=== PATIENT | female | born 1995 | race Caucasian/White ===

== ENCOUNTER → 2016-08-07 | Outpatient (REF) | payer OTHER ==
[2016-08-07 18:25] LABS: MEAN CORPUSCULAR HEMOGLOBIN 32.5 pg (27.0-33.0); MEAN CORPUSCULAR HGB CONC 35.1 g/dl (32.0-36.5); MEAN CORPUSCULAR VOLUME 92.5 fl (80.0-96.0); RED CELL DISTRIBUTION WIDTH 12.8 % (11.5-14.5); WHITE BLOOD COUNT 7.4 K/mm3 (4.0-10.0)
[2016-08-07 18:27] LABS: HCG, SERUM QUANTITATIVE 135050 MIU/ML
[2016-08-08 12:11] LABS: HIV SCRN NEGATIVE (NEGATIVE)
[2016-08-08 12:12] LABS: CONTROL LINE INT CTR LINE PRESENT; HIV SCRN1 NEGATIVE (NEGATIVE)
[2016-08-09 12:36] LABS: HBsAg Prenatal NEGATIVE (NEGATIVE)
== END ==
LOC: M LAB REF 16:50
PROVIDERS: ATTEND Obstetrics & Gynecology
DX: O36.80X0 Pregnancy with inconclusive fetal viability, not applicable or unspecified (principal); Z3A.00 Weeks of gestation of pregnancy not specified

== ENCOUNTER → 2016-09-02 | Outpatient (REF) | payer OTHER | LOC: M LAB REF 10:02 | PROVIDERS: ATTEND Physician Assistant | DX: R30.0 Dysuria (principal) ==

== ENCOUNTER → 2016-12-06 | Outpatient (CLI) | payer OTHER ==
[~2016-12-06] MED LIST: ACET50TA PO; IBUP-1114 PO; PRENTAB9 PO
[2016-12-06 10:21] LABS: MEAN CORPUSCULAR HEMOGLOBIN 33.3 pg (27.0-33.0); MEAN CORPUSCULAR HGB CONC 34.5 g/dl (32.0-36.5); MEAN CORPUSCULAR VOLUME 96.5 fl (80.0-96.0); RED CELL DISTRIBUTION WIDTH 13.1 % (11.5-14.5); WHITE BLOOD COUNT 6.2 K/mm3 (4.0-10.0)
== END ==
LOC: M LAB 08:37
PROVIDERS: ATTEND Obstetrics & Gynecology
DX: Z34.82 Encounter for supervision of other normal pregnancy, second trimester (principal)

== ENCOUNTER → 2017-02-07 | Outpatient (REF) | payer MEDICAID | LOC: M LAB REF 14:36 | PROVIDERS: ATTEND Obstetrics & Gynecology | DX: Z34.03 Encounter for supervision of normal first pregnancy, third trimester (principal); Z3A.36 36 weeks gestation of pregnancy ==

== ENCOUNTER 2017-03-01 15:19 | Inpatient (IN) | payer MEDICAID ==
[2017-03-01] VITALS (13 sets, daily range): BP systolic 94–129; BP diastolic 55–84
[~2017-03-01] VITALS: Ht 154.9 cm; Wt 80.8 kg
[2017-03-01] MEDS ORDERED: PRENTAB9 PO (15:42)
[2017-03-01 16:15] LABS: MEAN CORPUSCULAR HEMOGLOBIN 29.7 pg (27.0-33.0); MEAN CORPUSCULAR HGB CONC 32.4 g/dl (32.0-36.5); MEAN CORPUSCULAR VOLUME 91.5 fl (80.0-96.0); RED CELL DISTRIBUTION WIDTH 13.1 % (11.5-14.5); WHITE BLOOD COUNT 6.9 10^3/uL (4.0-10.0)
[2017-03-01] MEDS ORDERED: LR 1,000 ML IV SCH (16:15)
[2017-03-01] MEDS ORDERED: PENICILLIN G POTASSIUM IV 5 MU in D5W MINI-BAG PLUS 100 ML IV ONE (17:00)
--- NOTE | 2017-03-01 18:05 | HPEPDOC ---
Obstetrical History & Physical General Date of Admission Mar 01, 2017 at 15:19 Primary Care Physician: RYAN ROSAS CNM History of Present Illness Patient is a 22 year-old female who is a at 39.6 weeks gestation with an ANITA of 03/02/17 based off of her 1st trimester ultrasound and consistent with her LMP. She initiated care in her 2nd trimester at [facility] at 14 weeks gestation. Her has been uncomplicated. She presents to L&D in active labor after being sent over from the office. She reports contractions and active movement. Denies leaking of fluid or vaginal bleeding. Chief Complaint: Contractions, term Information Provided By: Patient Age: 22 : 1 Term: 0 Pre-term: 0 Abortions: 0 Livin Care Care: Other (LATE TO CARE) Dating Final EDC: Mar 02, 2017 Final EDC by: 1st trimester (US) LMP: Jun 06, 2016 EGA at Admission: 39.6 Antepartum Course Height (inches): 61 Pre- weight (lbs.): 162 Admission Weight (lbs.): 177 Change in Weight (lbs.): 15 Past Medical History Past Obstetrical History : Past Obstetrical History: Primgravida [employer] History: No pertinent history Past Medical History Medical History LYME DISEASE 2006 Surgical History: Denies/None Family History Significant Family History: No pertinent family hx Social History Marital Status: Single Family situation: Spouse/partner home Psychosocial History: No pertinent psych hx * Smoker: former Smoker Alcohol: Denies Drugs: denies Abuse Violence Screening Have you been hit/kicked/slapp: No Have you been sexually assault: No Imunizations Tdap status: declined Allergies Coded Allergies: No Known Allergies (Unverified , 03/01/17) Medications Scheduled Multivitamins/ ( 27-0.8 mg) 1 Tab Tab, 1 TAB PO DAILY Physical Examination Physical Examination GENERAL: Alert and oriented times three. BREAST: . ABDOMEN: Gravid and non-tender to touch. FETUS: Is vertex (VTX) by sterile vaginal examination (SVE), fetus is vertex ( VTX) by Jonathan. HEART RATE: Regular rate and rhythm. LUNGS: Clear to auscultation (CTA). EXTREMITIES: No edema. No clonus. Vital Signs/I&O Vital Signs Date Time Temp Pulse Resp B/P (MAP) Pulse Ox O2 Delivery O2 Flow Rate FiO2 03/01/17 17:03 79 18 99/66 (77) 03/01/17 16:10 98.9 Laboratory Data 24H LABS Laboratory Tests 2 03/01/17 15:35: Serology Scanned Report Hepatitis B Testing 03/01/17 15:40: Nucleated Red Blood Cells % (auto) 0.0 CBC/BMP Laboratory Tests 03/01/17 15:40 Red Blood Count 3.54 L, Mean Corpuscular Volume 91.5, Mean Corpuscular Hemoglobin 29.7, Mean Corpuscular Hemoglobin Concent 32.4, Red Cell Distribution Width 13.1 Urine Culture: No Growth Pertinent Laboratoy Data Blood Type: A+ RBC Antibody Screen: Negative HIV: Negative Hepatitis B: Negative Hepatitis C: Negative Rapid Plasma Reagin: Nonreactive Rubella: Immune Chlamydia/Gonorrhea: Negative Group B Streptococcus: Positive Quad Screen Test: Declined Glucose Tolerance Test: 102 Vaginal Examination Dilation: 4 cm Effacement: 80+% Station: -3 Presentation: Cephalic presentation Position: Four quadrants Assessment Heart Rate (FHR): 130 Variability: Moderate Accelerations: Positive Decelerations: None Tocometer Contractions: Yes Frequency: irregular, every 3-7 min. Multi-drug resistant Organism: No history of MDRO Assessment/Plan Assessment IUP at 39.6 weeks gestation active labor at term GBS positive Category I FHR tracing Plan Admit to L&D Saline lock and labs per protocol. Regular diet OOB ad jen. GBS prophylaxis to be started per order. Anesthesia consult as needed. Anticipate cervical change. Consider Pitocin augmentation for irregular contractions. RYAN ROSAS CNM Mar 01, 2017 18:05
[2017-03-01] MEDS ORDERED: OXYTOCIN 30 UNITS IN 0.9% NaCl 500ML IV BAG (J2590) As Ordered ONE (20:00)
[2017-03-01] MEDS ORDERED: OXYTOCIN DRIP 30 UNITS in APPROPRIATE DILUENT 1 EA IV SCH (20:00)
[2017-03-01] MEDS: LR 1,000 ML IV SCH (20:16)
[2017-03-01] MEDS: PENICILLIN G POTASSIUM IV 2.5 MU in D5W 100 ML IV SCH (21:34)
[2017-03-02] VITALS (62 sets, daily range): BP systolic 84–162; BP diastolic 42–83
[2017-03-02] MEDS: PENICILLIN G POTASSIUM IV 2.5 MU in D5W 100 ML IV SCH ×2 (01:37→08:09)
[2017-03-02] MEDS ORDERED: PROMETHAZINE INJ 25 MG/ML VIAL (J2550) IV ONE (03:30)
[2017-03-02] MEDS ORDERED: BUTORPHANOL 2 MG/ML INJ (J0595) IV ONE (03:30)
[2017-03-02] MEDS: LR 1,000 ML IV SCH (03:53)
[2017-03-02] MEDS ORDERED: FENTANYL 2MCG/ML ROPIVACAINE 0.2% IN 0.9% NACL 200ML IVBAG As Ordered ONE (05:37)
[2017-03-02] MEDS ORDERED: LR 800 ML IV SCH (06:47)
[2017-03-02] MEDS ORDERED: FENTANYL/ROPIVACAINE/NACL BAG 200 ML EPIDURAL SCH (07:00)
[2017-03-02] MEDS ORDERED: ONDANSETRON 4MG/2ML VIAL (J2405) IV PRN (07:00)
[2017-03-02] MEDS ORDERED: REFRIGERATOR IV KEYS XX PRN (07:00)
[2017-03-02] MEDS ORDERED: diphenhydrAMINE INJ 50MG/ML VIAL (J1200) IV PRN (07:00)
[2017-03-02] MEDS ORDERED: LACTATED RINGER'S 1000 ML IV PRN (07:00)
[2017-03-02] MEDS ORDERED: EPIDURAL/PCA KEYS XX PRN (07:00)
[2017-03-02] MEDS ORDERED: ePHEDrine SULFATE 25 MG/5 ML(5MG/ML) SYRINGE IV PRN (07:00)
[2017-03-02] MEDS ORDERED: NALOXONE INJ 0.4 MG/1 ML VIAL (J2310) IV PRN (07:00)
[2017-03-02] MEDS ORDERED: EPIDURAL COMMENT XX SCH (07:00)
[2017-03-02] MEDS ORDERED: OXYTOCIN DRIP 30 UNITS in APPROPRIATE DILUENT 1 EA IV SCH (12:53)
[2017-03-02] MEDS ORDERED: ACETAMINOPHEN 500 MG TAB PO PRN (13:00)
[2017-03-02] MEDS ORDERED: ANUSOL HC CREAM 30GM TOP PRN (13:00)
[2017-03-02] MEDS ORDERED: MEASLES,MUMPS,RUBELLA VACCINE INJ (MMR-II) (90707) SC SCH (13:00)
[2017-03-02] MEDS ORDERED: METHYLERGONOVINE MALEATE 0.2 MG TAB PO PRN (13:00)
[2017-03-02] MEDS ORDERED: DOCUSATE SODIUM 100 MG CAP PO PRN (13:00)
[2017-03-02] MEDS ORDERED: DIBUCAINE 1% OINTMENT 30GM TOP PRN (13:00)
[2017-03-02] MEDS ORDERED: RHOGAM 300 MCG (1500 IU) INJ (J2790) IM SCH (13:00)
--- NOTE | 2017-03-02 13:05 | DNPDOC ---
[facility] Delivery Note Delivery Note DATE OF DELIVERY: 03/02/17 at 1212. PROCEDURE: Spontaneous vaginal delivery. RPG PROGRAMMER: Ryan Betts CNM, RICCARDO ANESTHESIA: epidural. ESTIMATED BLOOD LOSS: 200 mL. FINDINGS: 7 pounds 3 ounces, 3260 grams, female , Score 8/9, nuchal cord times x1 tight. DELIVERY SUMMARY: Patient is a 22 year-old female who is now a at 40 weeks gestation who presented to L&D in active labor. Her labor was augmented with Pitocin and AROM. She obtained an epidural for pain management. She progressed to fully dilated at 11:19 and pushed to live female in the OA position with restitution to LOT at 12:12. There was a tight nuchal cord times 1 that was not reduced until after delivery. The anterior shoulder delivered with ease and the corpus immediately followed. The baby was placed on the maternal abdomen skin to skin active and crying. The cord was clamped times 2 and cut after pulsation ceased. Cord cut by patient. A 3 vessel cord was noted. The placenta delivered intact and spontaneously via Luis mechanism at 12:33. Uterine hemostasis was achieved by rapid infusion of IV Pitocin and uterine fundal massage. Perineum and vagina were inspected and found to have a second degree perineal laceration that was repaired with a 3.[address]-1 and a left labial tear that was repaired with a 4.0 vicryl rapid. Mom will be . They are naming their daughter "Matty." Both mom and baby are in stable condition. RYAN BETTS CNM Mar 02, 2017 13:05
[2017-03-02] MEDS: PRENATAL VITAMINS CHEWABLE TABLET PO SCH (16:16)
[2017-03-02] MEDS: IBUPROFEN 800 MG TAB PO PRN (19:27)
[2017-03-03 06:25] VITALS: BP 109/55
[2017-03-03] MEDS: PRENATAL VITAMINS CHEWABLE TABLET PO SCH (08:02)
[2017-03-03] MEDS: IBUPROFEN 800 MG TAB PO PRN (08:03)
[2017-03-03 18:00] VITALS: BP 112/58
[2017-03-04 06:15] VITALS: BP 126/76
[2017-03-04] MEDS: PRENATAL VITAMINS CHEWABLE TABLET PO SCH (07:49)
[2017-03-04] MEDS ORDERED: IBUP-1114 PO (08:51)
[2017-03-04] MEDS ORDERED: ACET50TA PO (08:51)
== END 2017-03-04 12:00 | disposition home or self-care (01) | DRG 560 ==
LOC: M LDI 15:19 → M OBS 03-02 14:20
PROVIDERS: ADMIT Obstetrics & Gynecology; ATTEND Advanced Practice Midwife
PROC: 10E0XZZ Delivery of Products of Conception, External Approach (ICD-10-PCS; principal; 2017-03-02)
PROC: 0KQM0ZZ Repair Perineum Muscle, Open Approach (ICD-10-PCS; 2017-03-02)
PROC: 10907ZC Drainage of Amniotic Fluid, Therapeutic from Products of Conception, Via Natural or Artificial Opening (ICD-10-PCS; 2017-03-02)
DX: O99.824 Streptococcus B carrier state complicating childbirth (principal); O69.1XX0 Labor and delivery complicated by cord around neck, with compression, not applicable or unspecified; Z3A.39 39 weeks gestation of pregnancy; Z37.0 Single live birth; O70.1 Second degree perineal laceration during delivery

== ENCOUNTER → 2019-05-01 | Outpatient (REF) | payer MEDICAID, OTHER ==
[~2019-05-01] MED LIST changes: -ACET50TA PO; +MAPA500T2 PO
== END ==
LOC: M LAB REF 18:54
PROVIDERS: ATTEND Dermatology
DX: D49.2 Neoplasm of unspecified behavior of bone, soft tissue, and skin (principal)

== ENCOUNTER → 2020-09-10 | Outpatient (REF) | payer OTHER ==
[2020-09-10 12:09] LABS: BASO # 0.1 10^3/uL (0.0-0.2); BASO % 0.7 % (0.0-1.0); EOS # 0.2 10^3/uL (0.0-0.5); EOS % 1.8 % (0.0-3.0); HEMATOCRIT 41.8 % (36.0-47.0); HEMOGLOBIN 14.4 g/dl (12.0-15.5); LYMPH # 2.2 10^3/uL (1.5-5.0); LYMPH % 24.3 % (24.0-44.0); MEAN CORPUSCULAR HGB CONC 34.4 g/dl (32.0-36.5); MEAN CORPUSCULAR VOLUME 98.8 fl (80.0-96.0); MONO # 0.6 10^3/uL (0.0-0.8); MONO % 6.2 % (2.0-8.0); NEUTROPHILS % 66.6 % (36.0-66.0); PLATELET COUNT, AUTOMATED 333 10^3/uL (150-450); RED BLOOD COUNT 4.23 10^6/uL (4.00-5.40)
[2020-09-10 12:42] LABS: PERCENT SATURATION 23.5 % (13.2-45.0); THYROID STIMULATING HORMONE 7.37 uIU/ML (0.358-3.740)
[2020-09-10 12:43] LABS: TOTAL 25(OH) VITAMIN D 17.1 NG/ML (30.0-100.0)
== END ==
LOC: M LAB REF 11:21
PROVIDERS: ATTEND Pediatrics
DX: R41.3 Other amnesia (principal)

== ENCOUNTER → 2020-12-22 | Outpatient (CLI) | payer OTHER, MEDICAID ==
--- NOTE | 2020-12-22 16:03 | REP ---
INDICATION: HYPOTHYROIDISM. COMPARISON: None. TECHNIQUE: Bilateral thyroid ultrasound FINDINGS: The right lobe measures 4.5 x 1.6 x 1.6 cm and the left lobe measures 4.5 x 1.3 x 1.4 cm. The isthmus measures 2.4 mm. The thyroid parenchymal echo pattern is heterogenous throughout. In the upper pole right lobe there are 2 nodules 1 measures 5 mm in the other measures 3 mm. In the lower pole the right lobe there is a single 6 mm sized solid nodule. In the upper pole of the left lobe there is a 3 mm sized solid nodule IMPRESSION: Multiple tiny nodules as described above. Consider follow-up. <Electronically signed by Baudilio Mckeon > 12/22/20 0814
== END ==
LOC: M RAD 14:02
PROVIDERS: ATTEND Pediatrics
DX: E03.9 Hypothyroidism, unspecified (principal)

== ENCOUNTER → 2022-02-20 | Outpatient (REF) | payer MEDICAID ==
[2022-02-20 18:09] LABS: APPEARANCE, URINE MANUAL CLEAR (CLEAR); BILIRUBIN, URINE MANUAL NEGATIVE (NEGATIVE); COLOR, URINE MANUAL YELLOW (YELLOW); GLUCOSE, URINE (UA) MANUAL NEGATIVE (NEGATIVE); KETONE, URINE MANUAL NEGATIVE (NEGATIVE); PROTEIN, URINE MANUAL NEGATIVE (NEGATIVE); UROBILINOGEN, URINE MANUAL NORMAL (NORMAL)
[2022-02-20 18:10] LABS: BLOOD URINE MANUAL POSITIVE (NEGATIVE); LEUKOCYTE ESTERASE, URINE MAN POSITIVE (NEGATIVE); NITRITE, URINE MANUAL NEGATIVE (NEGATIVE)
[2022-02-20 18:15] LABS: BASO # 0.1 10^3/uL (0.0-0.2); BASO % 0.7 % (0.0-1.0); EOS # 0.2 10^3/uL (0.0-0.5); EOS % 1.8 % (0.0-3.0); HEMATOCRIT 39.3 % (36.0-47.0); HEMOGLOBIN 13.1 g/dl (12.0-15.5); LYMPH # 2.7 10^3/uL (1.5-5.0); LYMPH % 31.3 % (24.0-44.0); MEAN CORPUSCULAR HEMOGLOBIN 32.8 pg (27.0-33.0); MEAN CORPUSCULAR HGB CONC 33.3 g/dl (32.0-36.5); MEAN CORPUSCULAR VOLUME 98.5 fl (80.0-96.0); MONO # 0.6 10^3/uL (0.0-0.8); MONO % 6.4 % (2.0-8.0); NEUTROPHILS # 5.1 10^3/uL (1.5-8.5); NEUTROPHILS % 59.6 % (36.0-66.0); PLATELET COUNT, AUTOMATED 340 10^3/uL (150-450); RED BLOOD COUNT 3.99 10^6/uL (4.00-5.40); WHITE BLOOD COUNT 8.5 10^3/uL (4.0-10.0)
[2022-02-20 18:32] LABS: SQUAMOUS EPITHELIAL CELL URINE SMALL AMOUNT /hpf (SMALL AMT)
[2022-02-20 18:33] LABS: BACTERIA, URINE SMALL AMOUNT; HYALINE CAST, URINE NONE SEEN /lpf (0-1)
[2022-02-20 18:56] LABS: ALBUMIN 3.7 GM/DL (3.2-5.2); ALT/SGPT 43 U/L (12-78); BILIRUBIN,TOTAL 0.5 MG/DL (0.2-1.0); BLOOD UREA NITROGEN 6 MG/DL (7-18); C REACTIVE PROTEIN QUANTITATIV 1.17 MG/DL (0.00-0.30); CALCIUM LEVEL 8.7 MG/DL (8.5-10.1); CARBON DIOXIDE LEVEL 27 MEQ/L (21-32); CHLORIDE LEVEL 106 MEQ/L (98-107); COMPLEMENT C3 149 MG/DL (90-180); COMPLEMENT C4 30 MG/DL (10-40); GLOMERULAR FILTRATION RATE > 60.0 (>60); GLUCOSE, FASTING 85 MG/DL (70-100); POTASSIUM SERUM 3.8 MEQ/L (3.5-5.1); SODIUM LEVEL 137 MEQ/L (136-145); TOTAL PROTEIN 7.2 GM/DL (6.4-8.2)
[2022-02-20 18:58] LABS: ERYTHROCYTE SEDIMENTATION RATE 25 mm/hr (0-20)
[2022-02-20 19:01] LABS: TOTAL PROTEIN,RANDOM URINE 10.6 MG/DL (0.0-12.0)
== END ==
LOC: M SFHCRHEU 14:32
PROVIDERS: ATTEND Internal Medicine Rheumatology
DX: R76.8 Other specified abnormal immunological findings in serum (principal); M35.3 Polymyalgia rheumatica

== ENCOUNTER → 2022-02-28 | Outpatient (REF) | payer MEDICAID | LOC: M LAB REF 16:15 | PROVIDERS: ATTEND Pediatrics | DX: E06.3 Autoimmune thyroiditis (principal) ==

== ENCOUNTER → 2022-03-17 | Outpatient (CLI) | payer MEDICAID | LOC: M RAD 09:04 | PROVIDERS: ATTEND Internal Medicine Rheumatology | DX: R76.8 Other specified abnormal immunological findings in serum (principal); M35.3 Polymyalgia rheumatica ==

== ENCOUNTER → 2022-06-14 | Outpatient (CLI) | payer OTHER | LOC: M PLAIMG 06:56 | PROVIDERS: ATTEND Internal Medicine Rheumatology | DX: M53.3 Sacrococcygeal disorders, not elsewhere classified (principal) ==

== ENCOUNTER → 2022-07-03 | Outpatient (REF) | payer OTHER | LOC: M LAB REF 16:28 | PROVIDERS: ATTEND Pediatrics | DX: E06.3 Autoimmune thyroiditis (principal) ==

== ENCOUNTER → 2022-09-01 | Outpatient (CLI) | payer OTHER ==
[2022-09-01 19:32] LABS: FREE T4 1.02 NG/DL (0.89-1.76); THYROID STIMULATING HORMONE 1.193 uIU/ML (0.55-4.78)
== END ==
LOC: M LAB 18:24
PROVIDERS: ATTEND Nurse Practitioner Family
DX: E06.3 Autoimmune thyroiditis (principal)

== ENCOUNTER → 2022-09-20 | Outpatient (CLI) | payer OTHER ==
[2022-09-20 13:21] LABS: BASO # 0.1 10^3/uL (0.0-0.2); BASO % 0.6 % (0.0-1.0); EOS # 0.1 10^3/uL (0.0-0.5); EOS % 1.7 % (0.0-3.0); HEMATOCRIT 39.1 % (36.0-47.0); HEMOGLOBIN 13.2 g/dl (12.0-15.5); LYMPH # 2.3 10^3/uL (1.5-5.0); LYMPH % 28.2 % (24.0-44.0); MEAN CORPUSCULAR HEMOGLOBIN 33.4 pg (27.0-33.0); MEAN CORPUSCULAR HGB CONC 33.8 g/dl (32.0-36.5); MONO # 0.5 10^3/uL (0.0-0.8); MONO % 5.5 % (2.0-8.0); NEUTROPHILS # 5.3 10^3/uL (1.5-8.5); NEUTROPHILS % 63.6 % (36.0-66.0); PLATELET COUNT, AUTOMATED 277 10^3/uL (150-450); RED BLOOD COUNT 3.95 10^6/uL (4.00-5.40); WHITE BLOOD COUNT 8.3 10^3/uL (4.0-10.0)
[2022-09-20 13:42] LABS: ERYTHROCYTE SEDIMENTATION RATE 28 mm/hr (0-20)
[2022-09-20 13:56] LABS: ALBUMIN 3.7 G/DL (3.2-5.2); ALKALINE PHOSPHATASE 70 U/L (46-116); ALT/SGPT 30 U/L (7.0-40); AST/SGOT 19 U/L (<34); BILIRUBIN,TOTAL 0.9 MG/DL (0.3-1.2); BLOOD UREA NITROGEN 8 MG/DL (9-23); CALCIUM LEVEL 8.7 MG/DL (8.5-10.1); CARBON DIOXIDE LEVEL 27 MMOL/L (20-31); CHLORIDE LEVEL 106 MMOL/L (98-107); CREATININE FOR GFR 0.56 MG/DL (0.55-1.30); GLOMERULAR FILTRATION RATE > 60.0 (>60); GLUCOSE, FASTING 82 MG/DL (60-100); POTASSIUM SERUM 4.3 MMOL/L (3.5-5.1); SODIUM LEVEL 138 MMOL/L (136-145); TOTAL PROTEIN 6.5 G/DL (5.7-8.2)
== END ==
LOC: M LAB 12:12
PROVIDERS: ATTEND Internal Medicine Rheumatology
DX: M46.1 Sacroiliitis, not elsewhere classified (principal)

== ENCOUNTER → 2022-09-27 | Outpatient (REF) | payer OTHER ==
[2022-09-27 13:10] LABS: THYROID STIMULATING HORMONE 2.179 uIU/ML (0.55-4.78); TOTAL 25(OH) VITAMIN D 28.7 NG/ML (20.0-100.0)
== END ==
LOC: M LAB REF 12:13
PROVIDERS: ATTEND Pediatrics
DX: E06.3 Autoimmune thyroiditis (principal); E55.9 Vitamin D deficiency, unspecified

== ENCOUNTER → 2023-07-25 | Outpatient (CLI) | payer OTHER ==
[2023-07-25 11:18] LABS: BASO # 0.1 10^3/uL (0.0-0.2); BASO % 0.7 % (0.0-1.0); EOS # 0.1 10^3/uL (0.0-0.5); HEMOGLOBIN 13.2 g/dl (12.0-15.5); LYMPH # 2.4 10^3/uL (1.5-5.0); LYMPH % 33.7 % (24.0-44.0); MEAN CORPUSCULAR HEMOGLOBIN 33.8 pg (27.0-33.0); MEAN CORPUSCULAR HGB CONC 33.8 g/dl (32.0-36.5); MONO # 0.7 10^3/uL (0.0-0.8); MONO % 9.3 % (2.0-8.0); NEUTROPHILS # 3.8 10^3/uL (1.5-8.5); PLATELET COUNT, AUTOMATED 294 10^3/uL (150-450); WHITE BLOOD COUNT 7.1 10^3/uL (4.0-10.0)
[2023-07-25 11:30] LABS: ERYTHROCYTE SEDIMENTATION RATE 20 mm/hr (0-20)
[2023-07-25 11:36] LABS: ALBUMIN 3.7 G/DL (3.2-5.2); ALKALINE PHOSPHATASE 58 U/L (46-116); ALT/SGPT 21 U/L (7.0-40); AST/SGOT 16 U/L (<34); BILIRUBIN,TOTAL 0.5 MG/DL (0.3-1.2); BLOOD UREA NITROGEN 8 MG/DL (9-23); CALCIUM LEVEL 8.2 MG/DL (8.5-10.1); CARBON DIOXIDE LEVEL 29 MMOL/L (20-31); CHLORIDE LEVEL 106 MMOL/L (98-107); CREATININE FOR GFR 0.53 MG/DL (0.55-1.30); GLOMERULAR FILTRATION RATE > 60.0 (>60); GLUCOSE, FASTING 80 MG/DL (60-100); SODIUM LEVEL 136 MMOL/L (136-145); TOTAL PROTEIN 6.4 G/DL (5.7-8.2)
[2023-07-25 12:17] LABS: HEPATITIS B CORE ANTIBODY IGM NEGATIVE (NEGATIVE); HEPATITIS C VIRUS ABY INDEX 0.04 INDEX (<0.8)
== END ==
LOC: M WUC 08:17
PROVIDERS: ATTEND Internal Medicine Rheumatology
DX: R76.8 Other specified abnormal immunological findings in serum (principal); M35.3 Polymyalgia rheumatica

== ENCOUNTER → 2023-10-11 | Outpatient (REF) | payer OTHER | LOC: M LABWUC 17:19 | PROVIDERS: ATTEND Pediatrics | DX: E06.3 Autoimmune thyroiditis (principal) ==

== ENCOUNTER → 2023-10-11 | Outpatient (REF) | payer OTHER ==
[2023-10-11 18:01] LABS: BASO # 0.1 10^3/uL (0.0-0.2); BASO % 0.7 % (0.0-1.0); EOS # 0.2 10^3/uL (0.0-0.5); EOS % 2.4 % (0.0-3.0); HEMOGLOBIN 12.6 g/dl (12.0-15.5); LYMPH # 1.9 10^3/uL (1.5-5.0); LYMPH % 26.2 % (24.0-44.0); MEAN CORPUSCULAR HEMOGLOBIN 34.3 pg (27.0-33.0); MEAN CORPUSCULAR HGB CONC 34.1 g/dl (32.0-36.5); MEAN CORPUSCULAR VOLUME 100.8 fl (80.0-96.0); MONO # 0.4 10^3/uL (0.0-0.8); MONO % 5.8 % (2.0-8.0); NEUTROPHILS # 4.7 10^3/uL (1.5-8.5); NEUTROPHILS % 64.8 % (36.0-66.0); PLATELET COUNT, AUTOMATED 263 10^3/uL (150-450); RED BLOOD COUNT 3.67 10^6/uL (4.00-5.40); WHITE BLOOD COUNT 7.2 10^3/uL (4.0-10.0)
[2023-10-11 18:07] LABS: ERYTHROCYTE SEDIMENTATION RATE 21 mm/hr (0-20)
[2023-10-11 18:18] LABS: C REACTIVE PROTEIN QUANTITATIV < 0.40 MG/DL (<1.0)
[2023-10-11 18:20] LABS: ALBUMIN 3.7 G/DL (3.2-5.2); ALKALINE PHOSPHATASE 54 U/L (46-116); ALT/SGPT 16 U/L (7.0-40); AST/SGOT 9 U/L (<34); BILIRUBIN,TOTAL 0.3 MG/DL (0.3-1.2); BLOOD UREA NITROGEN 10 MG/DL (9-23); CALCIUM LEVEL 8.5 MG/DL (8.5-10.1); CARBON DIOXIDE LEVEL 25 MMOL/L (20-31); CHLORIDE LEVEL 111 MMOL/L (98-107); CREATININE FOR GFR 0.57 MG/DL (0.55-1.30); GLOMERULAR FILTRATION RATE > 60.0 (>60); GLUCOSE, FASTING 102 MG/DL (60-100); POTASSIUM SERUM 3.8 MMOL/L (3.5-5.1); SODIUM LEVEL 140 MMOL/L (136-145); TOTAL PROTEIN 6.4 G/DL (5.7-8.2)
== END ==
LOC: M LABWUC 17:16
PROVIDERS: ATTEND Internal Medicine Rheumatology
DX: M47.819 Spondylosis without myelopathy or radiculopathy, site unspecified (principal); R76.8 Other specified abnormal immunological findings in serum; M35.3 Polymyalgia rheumatica; R79.82 Elevated C-reactive protein (CRP)

== ENCOUNTER → 2023-11-27 | Outpatient (REF) | payer OTHER ==
[2023-11-27 18:23] LABS: BASO % 0.6 % (0.0-1.0); EOS # 0.1 10^3/uL (0.0-0.5); EOS % 1.6 % (0.0-3.0); HEMATOCRIT 37.7 % (36.0-47.0); LYMPH % 29.4 % (24.0-44.0); MEAN CORPUSCULAR HEMOGLOBIN 34.2 pg (27.0-33.0); MEAN CORPUSCULAR HGB CONC 34.5 g/dl (32.0-36.5); MEAN CORPUSCULAR VOLUME 99.2 fl (80.0-96.0); MONO # 0.5 10^3/uL (0.0-0.8); MONO % 7.4 % (2.0-8.0); NEUTROPHILS # 4.1 10^3/uL (1.5-8.5); NEUTROPHILS % 60.7 % (36.0-66.0); PLATELET COUNT, AUTOMATED 283 10^3/uL (150-450); WHITE BLOOD COUNT 6.7 10^3/uL (4.0-10.0)
[2023-11-27 18:45] LABS: THYROID STIMULATING HORMONE 3.089 uIU/ML (0.55-4.78); TOTAL 25(OH) VITAMIN D 28.8 NG/ML (20.0-100.0)
[2023-11-27 18:47] LABS: ALBUMIN 3.6 G/DL (3.2-5.2); ALKALINE PHOSPHATASE 52 U/L (46-116); ALT/SGPT 18 U/L (7.0-40); AST/SGOT 9 U/L (<34); BILIRUBIN,TOTAL 0.6 MG/DL (0.3-1.2); BLOOD UREA NITROGEN 12 MG/DL (9-23); CALCIUM LEVEL 8.9 MG/DL (8.5-10.1); CARBON DIOXIDE LEVEL 27 MMOL/L (20-31); CHLORIDE LEVEL 107 MMOL/L (98-107); CHOLESTEROL LEVEL 174 MG/DL (<200); CHOLESTEROL RISK RATIO 3.91 (<5); CREATININE FOR GFR 0.64 MG/DL (0.55-1.30); GLOMERULAR FILTRATION RATE > 60.0 (>60); GLUCOSE, FASTING 90 MG/DL (60-100); HDL CHOLESTEROL 44.5 MG/DL (>40); LDL CHOLESTEROL 108.5 MG/DL (<100); NON-HDL-C 129.5 MG/DL; POTASSIUM SERUM 4.7 MMOL/L (3.5-5.1); SODIUM LEVEL 139 MMOL/L (136-145); TOTAL PROTEIN 6.3 G/DL (5.7-8.2); TRIGLYCERIDES LEVEL 105 MG/DL (<150)
[2023-11-27 19:06] LABS: HEMOGLOBIN A1c 4.7 % (4.0-6.0)
== END ==
LOC: M LAB REF 16:46
PROVIDERS: ATTEND Pediatrics
DX: E55.9 Vitamin D deficiency, unspecified (principal); Z68.37 Body mass index [BMI] 37.0-37.9, adult; E03.8 Other specified hypothyroidism

== ENCOUNTER → 2024-08-01 | Outpatient (REF) | payer OTHER | LOC: M LAB REF 12:36 | PROVIDERS: ATTEND Pediatrics | DX: E03.8 Other specified hypothyroidism (principal) ==